=== PATIENT | male | born 1975 | race Caucasian/White ===

== ENCOUNTER 2017-07-17 03:13 | Emergency (ER) | payer MEDICAID, OTHER ==
[2017-07-17] MEDS: KETOROLAC 60 MG INJ IM (05:08)
== END 2017-07-17 05:29 | disposition home or self-care (01) ==
LOC: FTE 03:13
DX: J02.9 Acute pharyngitis, unspecified (principal)
CPT/HCPCS: 96372; 99284-25; J1885